=== PATIENT | male | born 1980 | race Caucasian/White ===

== ENCOUNTER 2021-01-29 15:49 | Emergency (ER) | payer OTHER ==
[~2021-01-29] VITALS: Ht 172.7 cm; Wt 86.2 kg
[~2021-01-29 15:49] MED LIST: DEXAMETHASONE 2M2 MG PO; ONDANSETRON HCL4 MG PO; PRINIVIL20 MG PO; VENTOLIN HFA IN18 GM INH; ZOFRAN8 MG PO
[2021-01-29 16:55] LABS: BASOPHIL 0.7 % (0-2); EOSINOPHIL 1.8 % (0-5); LYMPHOCYTE 24.9 % (15-48); MCH 26.4 pg (25.0-31.0); MCHC 32.6 g/dL (32.0-36.0); MONOCYTE 7.9 % (0-12); MPV 9.1 fL (6.0-9.5); NEUTROPHIL 64.5 % (41-80); NRBC 0; PLT 341 K/uL (150-400); RBC 5.31 M/uL (4.70-6.00); RDW 13.3 % (11.5-14.0); WBC 8.7 K/uL (4.0-10.5)
[2021-01-29 16:59] LABS: INR 0.99 (0.9-1.2); PROTHROMBIN TIME 12.5 SECONDS (11.8-13.4); PTT 28.6 SECONDS (24.4-34.7)
[2021-01-29 17:17] LABS: ALBUMIN 3.8 g/dL (3.4-5.0); BILIRUBIN - TOTAL 0.9 mg/dL (0.2-1.0); BUN/CREAT RATIO (CALC) 14.3 RATIO; CREATININE 0.77 mg/dL (0.67-1.17); GLOBULIN (CALCULATION) 3.7 g/dL; POTASSIUM 3.7 mmol/L (3.5-5.1); TOTAL PROTEIN 7.5 g/dL (6.4-8.2)
[2021-01-29] MEDS ORDERED: PEPCID40 MG PO (17:50)
== END 2021-01-29 18:23 | disposition home or self-care (01) ==
LOC: FER 15:49
PROVIDERS: Internal Medicine
DX: K21.9 Gastro-esophageal reflux disease without esophagitis (principal); R07.89 Other chest pain; I10 Essential (primary) hypertension; E11.9 Type 2 diabetes mellitus without complications
CPT/HCPCS: 36415; 71045; 80053; 84484; 85025; 85610; 85730; 93005

== ENCOUNTER 2021-05-26 23:22 | Emergency (ER) | payer OTHER ==
[~2021-05-26 23:22] MED LIST changes: +PEPCID40 MG PO
[2021-05-26 23:59] LABS: BASOPHIL 0.4 % (0-2); HCT 46.1 % (42.0-52.0); HGB 15.1 g/dl (13.2-18.0); LYMPHOCYTE 35.4 % (15-48); MCH 26.2 pg (25.0-31.0); MCHC 32.8 g/dL (32.0-36.0); MCV 79.9 fL (78.0-100.0); MONOCYTE 8.5 % (0-12); MPV 8.6 fL (6.0-9.5); NEUTROPHIL 53.4 % (41-80); NRBC 0; PLT 324 K/uL (150-400); RBC 5.77 M/uL (4.70-6.00); RDW 13.2 % (11.5-14.0); WBC 7.9 K/uL (4.0-10.5)
[2021-05-27 01:32] LABS: BILIRUBIN NEGATIVE (NEGATIVE); BLOOD NEGATIVE Ery/uL (NEGATIVE); CLARITY CLEAR (CLEAR); COLOR YELLOW (YELLOW); GLUCOSE (U) 2+ mg/dL (NORMAL); LEUKOCYTES NEGATIVE Leu/uL (NEGATIVE); NITRITE NEGATIVE (NEGATIVE); PROTEIN NEGATIVE (NEGATIVE); SPECIFIC GRAVITY >=1.030 (1.001-1.030); UROBILINOGEN 0.2 mg/dL (0.2-1.0)
[2021-05-27 01:54] LABS: CREATININE 0.76 mg/dL (0.67-1.17); POTASSIUM 3.2 mmol/L (3.5-5.1)
[2021-05-27 01:55] LABS: ALBUMIN 4.3 g/dL (3.4-5.0); BILIRUBIN - TOTAL 1.1 mg/dL (0.2-1.0); GLOBULIN (CALCULATION) 4.2 g/dL; TOTAL PROTEIN 8.5 g/dL (6.4-8.2)
[2021-05-27] MEDS ORDERED: ONDANSETRON ODT4 MG PO (02:36)
== END 2021-05-27 03:10 | disposition home or self-care (01) ==
LOC: FER 23:22
PROVIDERS: Emergency Medicine
DX: U07.1 COVID-19 (principal); E86.0 Dehydration; E11.9 Type 2 diabetes mellitus without complications; I10 Essential (primary) hypertension; Z79.899 Other long term (current) drug therapy
CPT/HCPCS: 36415; 70450; 80053; 81003; 84484; 85025; 93005; J1885; J2405; J7030; U0002

== ENCOUNTER 2021-07-19 17:15 | Emergency (ER) | payer OTHER ==
[~2021-07-19 17:15] MED LIST changes: +ONDANSETRON ODT4 MG PO
[2021-07-19 17:46] LABS: BASOPHIL 0.4 % (0-2); EOSINOPHIL 1.4 % (0-5); HCT 39.9 % (42.0-52.0); HGB 13.3 g/dl (13.2-18.0); LYMPHOCYTE 34.5 % (15-48); MCH 26.6 pg (25.0-31.0); MCHC 33.3 g/dL (32.0-36.0); MCV 79.8 fL (78.0-100.0); MONOCYTE 7.3 % (0-12); MPV 8.7 fL (6.0-9.5); NEUTROPHIL 56.2 % (41-80); NRBC 0; PLT 362 K/uL (150-400); RDW 13.8 % (11.5-14.0); WBC 8.5 K/uL (4.0-10.5)
[2021-07-19 18:11] LABS: ACETAMINOPHEN (TYLENOL) < 2.0 ug/mL (10.0-30.0); ALKALINE PHOSHATASE 74 U/L (46-116); ALT 54 U/L (16-63); AST 35 U/L (15-37); BILIRUBIN - TOTAL 1.4 mg/dL (0.2-1.0); BUN 15 mg/dL (7-18); BUN/CREAT RATIO (CALC) 17.2 RATIO; CHLORIDE 103 mmol/L (98-107); CO2 (BICARBONATE) 26 mmol/L (21-32); CREATININE 0.87 mg/dL (0.67-1.17); GLOBULIN (CALCULATION) 3.5 g/dL; GLUCOSE 195 mg/dL (74-106); POTASSIUM 3.5 mmol/L (3.5-5.1); TOTAL PROTEIN 7.5 g/dL (6.4-8.2)
== END 2021-07-19 18:35 ==
LOC: FER 17:15
PROVIDERS: Emergency Medicine
DX: F10.129 Alcohol abuse with intoxication, unspecified (principal); E11.9 Type 2 diabetes mellitus without complications; Z02.79 Encounter for issue of other medical certificate; Z53.29 Procedure and treatment not carried out because of patient's decision for other reasons; Z79.4 Long term (current) use of insulin; Y90.0 Blood alcohol level of less than 20 mg/100 ml
CPT/HCPCS: 36415; 80053; 85025; 99284; G0480